=== PATIENT | female | born 1955 | race Caucasian/White ===

== ENCOUNTER → 2018-06-15 | Outpatient (CLI) | payer MEDICARE, MEDICAID ==
--- NOTE | 2018-06-15 14:48 | Diagnostic Imaging Report ---
EXAMINATION: CT of the internal auditory canals. TECHNIQUE: Routine images of the internal auditory canals were obtained. Axial images were performed as well as sagittal and coronal reconstructed images. FINDINGS: There are no previous CT IAC examinations available for comparison. The MRI brain exam of 01/05/2010 failed to show any abnormality of the seventh or eighth nerve complexes. The mastoid air cells seemed to be generally clear and well aerated. There was a 2.1 cm retention cyst in the left maxillary antrum. On this study, the mastoid air cells continue to be generally clear and well aerated. There is a very small amount of fluid and mucosal thickening in the mastoid air cells on the left. There is no evidence for bony destruction or for a soft tissue mass. The internal auditory canals, the semicircular canals, and the inner ear ossicles seem symmetrical and within normal limits. The intracranial contents where visualized are unremarkable. The bone windows show no sign of a fracture. The 2 cm retention cyst in the left maxillary antrum seen on the previous exam has decreased in size and now measures 1.3 cm. The orbits, where visualized, are symmetrical and within normal limits. The proofer prepress film does show a small metallic density in the region of the ethmoid air cells on the right. This finding was not included on the axial, sagittal, or coronal images. IMPRESSION: 1. There is a small amount of fluid and mild mucosal thickening in the mastoid air cells on the left. This does suggest mild mastoiditis. Whether this is chronic or acute, however, is not certain. 2. There is no other evidence for an acute abnormality. 3. There is no mass or destructive lesion visualized. 4. There is a small metallic foreign body in the region of the ethmoid air cells on the right. If further imaging is desired, then CT of the head would be recommended. Dictated by: Dictated on workstation # [id number]
== END ==
LOC: RAD 11:41
PROVIDERS: ATTEND Otolaryngology Otolaryngology/Facial Plastic Surgery
DX: G93.89 Other specified disorders of brain (principal); H92.01 Otalgia, right ear
CPT/HCPCS: 70480